=== PATIENT | female | born 1995 | race African-American/Black ===

== ENCOUNTER 2018-05-21 04:07 | Emergency (ER) | payer OTHER ==
[~2018-05-21] VITALS: Ht 167.6 cm; Wt 65.9 kg
[2018-05-21 04:08] VITALS: TEMP 97.1
[2018-05-21] MEDS ORDERED: ZOFRAN ODT4 MG PO (04:27)
[2018-05-21 04:43] LABS: BASO % 0.5 % (0.0-2.0); EOS # 0.1 (0.0-0.7); EOS % 1.4 % (0-4.0); GRAN # 1.5 (1.4-6.5); GRAN % 33.9 % (42.2-75.2); HEMATOCRIT 38.8 % (35.0-45.0); HEMOGLOBIN 12.2 g/dl (12.0-15.0); LYMPH # 2.5 (1.2-3.4); LYMPH % 55.2 % (20.0-51.0); MEAN CELL VOLUME 81 fl (80.0-95.0); MEAN CORPUSCULAR HEMOGLOBIN 26 pg (26.0-32.0); MEAN CORPUSCULAR HGB CONC 31 g/dl (33.0-37.0); MEAN PLATELET VOLUME 9.9 fl (7.4-10.4); MONO # 0.4 (0.1-0.6); PLATELET COUNT 232 K/mm3 (130-400); RED BLOOD COUNT 4.78 M/mm3 (4.10-5.30); REDCELL DISTRIBUTION WIDTH-CV 17.3 % (11.5-14.5)
[2018-05-21 04:54] LABS: ALANINE AMINOTRANSFERASE 24 U/L (9-52); ALBUMIN 3.8 gm/dL (3.5-5.0); ALKALINE PHOSPHATASE 46 U/L (50-136); ANION GAP 5 mmol/L (7-16); AST,SGOT 23 U/L (15-37); BILIRUBIN,TOTAL < 0.1 mg/dL (0.0-1.0); BLOOD UREA NITROGEN 9 mg/dL (7-17); CALCIUM 8.8 mg/dL (8.4-10.2); CARBON DIOXIDE 28 mmol/L (22-30); CHLORIDE 105 mmol/L (98-107); CREATININE, serum 0.85 mg/dL (0.52-1.25); GLUCOSE 102 mg/dL (74-106); POTASSIUM 3.7 mmol/L (3.4-5.0); SODIUM 137 mmol/L (137-145); TOTAL PROTEIN 7.1 gm/dL (6.4-8.2)
[2018-05-21 06:15] VITALS: BP 118/77; PULSE 59
== END 2018-05-21 06:17 | disposition home or self-care (01) ==
LOC: COL.ER 04:07
PROVIDERS: Emergency Medicine
DX: R19.7 Diarrhea, unspecified (principal); R11.2 Nausea with vomiting, unspecified
CPT/HCPCS: J1885; J2405; J7030

== ENCOUNTER 2019-09-20 14:36 | Emergency (ER) | payer OTHER ==
[~2019-09-20] VITALS: Ht 167.6 cm; Wt 65.9 kg
[~2019-09-20 14:36] MED LIST: ZOFRAN ODT4 MG PO
[2019-09-20 17:22] VITALS: BP 109/64; PULSE 92; TEMP 100.1
== END 2019-09-20 17:30 | disposition home or self-care (01) ==
LOC: COL.ER 14:36
DX: J22 Unspecified acute lower respiratory infection (principal); B97.29 Other coronavirus as the cause of diseases classified elsewhere
CPT/HCPCS: J7030